=== PATIENT | female | born 1980 | race Caucasian/White ===

== ENCOUNTER 2017-07-29 13:04 | Outpatient (CLI) | payer BC ==
[2017-07-29 13:23] LABS: #Basophils 0.1 thou/uL (0.0-0.2); #Eosinphils 0.1 thou/uL (0.0-0.7); #Lymphocytes 2.5 thou/uL (1.20-3.40); #Monocytes 0.4 thou/uL (0.11-0.59); #Neutrophils 2.6 thou/uL (1.40-6.50); %Basophils 1.2 % (0.0-1.0); %Eosinophils 2.6 % (0.0-10.0); %Lymphocytes 43.3 % (21.0-51.0); %Monocytes 7.1 % (0.0-10.0); %Neutrophils 45.9 % (42.0-75.0); Mean Corpuscular HGB CONC 34.6 g/dL (32.0-36.0); Mean Corpuscular Hemoglobin 32.3 pg (27.0-31.0); Mean Corpuscular Volume 93.4 fl (81.0-99.0); Mean Platelet Volume 7.8 fL (7.4-10.4); Platelet Count 319 thou/uL (130-400); RBC Distribution Width 11.1 % (11.5-14.5); Red Blood Cell (RBC) Count 4.32 mill/uL (4.20-5.40); White Blood Cell (WBC) Count 5.7 thou/uL (4.8-10.8)
[2017-07-29 13:44] LABS: Anion Gap 13 mmol/L (10-20); BUN (Urea Nitrogen) 12 mg/dL (7.0-18.7); Calc. Creatinine Clearance 0 mL/min (70-130); Calcium 9.3 mg/dL (7.8-10.44); Carbon Dioxide 19 mmol/L (22-29); Chloride 108 mmol/L (98-107); Estimated GFR-MDRD 87; Glucose 94 mg/dL (70-105); Potassium 3.7 mmol/L (3.5-5.1); Sodium 136 mmol/L (136-145)
[2017-07-29 13:46] LABS: BHCG - Serum Negative (NEGATIVE); Pregs Control Background? CLEAR/WHITE (CLR/WHITE); Pregs Control Bar Appear? YES (CONTROL BAR)
== END 2017-07-29 13:05 | disposition home or self-care (01) ==
LOC: LABBT 13:04
PROVIDERS: ATTEND Specialist
DX: Z01.818 Encounter for other preprocedural examination (principal); K64.4 Residual hemorrhoidal skin tags; K64.8 Other hemorrhoids
CPT/HCPCS: 80048; 84703; 85025

== ENCOUNTER 2017-07-31 08:27 | Day surgery (SDC) | payer BC ==
--- NOTE | 2017-07-24 06:20 | HP ---
HISTORY OF PRESENT ILLNESS: Ms. Viola Benoit is a 36-year-old female who has experienced years of h emorrhoidal complaints, bleeding, mostly pain and prolapse. She has redundant perianal skin, it has greatly bothersome to her. She has tolerated the itching. More recently, she has experienced bleedi ng, she has never had a colonoscopy. Family history is negative for colon cancer. She is referred b nathaniel Donato. The patient has tried different creams, Preparation H and warm and hot baths without relief. ALLERGIES: None. TOBACCO: None. ALCOHOL: Rarely. MEDICAITONS: Antidepressants, otherwise noncontributory except for [id number] Zyrtec oral cont raceptives. PAST EMDICAL HSITORY: Noncontributory. REVIEW OF SYSTEMS: Noncontributory, 2, para 2. A 10-point review of systems is negative. PHYSICAL EXAMINATION: VITAL SIGNS: A 182 pounds, 61 inches, 114/76, 89, 98 degrees. HEENT: Unremarkable. LUNGS: Clear to auscultation. CARDIAC: Regular rate and rhythm. No murmur or gallop. ABDOMEN: Soft, nontender. EXTREMITIES: Unremarkable. GENITOURINARY: Perianal area reveals a very large redundant hemorrhoidal tag, almost 4 cm. There we re smaller posterior hemorrhoidal tags. Anoscopy reveals stigmata of bleeding from her anterior hemo rrhoids. She has moderate to large internal hemorrhoids. ASSESSMENT AND PLAN: Symptomatic hemorrhoidal disease refractory to medical treatment. I have discu ssed treatment options, surgical and nonsurgical. She wishes to proceed with colonoscopy, PPH, stapl ed hemorrhoidectomy, and excision of remaining external hemorrhoidal tissue. She understands the ris ks, infection, bleeding, reoperation, etc., and consents.
--- NOTE | 2017-07-24 06:21 | ADD-HP ---
ADDENDUM TO HISTORY AND PHYSICAL DICTATED 04/13/2017 - #[id number] HISTORY OF PRESENT ILLNESS: Viola Benoit is a 37-year-old female with persistent hemorrhoidal prola pse, hemorrhoid tags, painful hemorrhoids, and bleeding. Recommendations were for PPH stapled hemorr hoidectomy after a colonoscopy after a bowel prep the day prior. She understands the risks and benef its of procedure and consents. We will plan this in early July. MEDICATIONS: Oral contraceptives, Zyrtec, venlafaxine. PAST MEDICAL HISTORY: Depression, cluster headaches. PAST SURGICAL HISTORY: Left arthroscopies, meniscectomy in 2002, tonsillectomy, , colonosco py by Dr. Ball in September 2008. The patient followed by Dr. Donato. REVIEW OF SYSTEMS: Ten-point noncontributory. PHYSICAL EXAMINATION: VITAL SIGNS: 172 pounds, 61 inches, 32 BMI, 108/59, 73, 99 degrees. HEAD, EYES, EARS, NOSE, AND THROAT: Unremarkable. LUNGS: Clear to auscultation. CARDIAC: Regular rate and rhythm without murmur or gallop. ABDOMEN: Soft, nontender, no masses. EXTREMITIES: Unremarkable. RECTAL: Patient has prolapsed hemorrhoids with a very large hemorrhoidal tag, approximately 5 cm in length. She has tender hemorrhoids. ASSESSMENT: Internal and external hemorrhoids with rectal bleeding. PLAN: Colonoscopy, PPH stapled hemorrhoidectomy. She understands the risks and benefits and consent s.
[2017-07-29 13:20] VITALS: BMI 32.5
[2017-07-31] MEDS ORDERED: Fentanyl 100 MCG/2 ML VIAL ONE ×2 (08:36→11:18)
[2017-07-31] MEDS ORDERED: Bupivacaine PF 0.5% 30 ML VIAL ONE (08:47)
[2017-07-31] MEDS ORDERED: Lidocaine 2% Jelly 5 ML TUBE ONE (08:47)
[2017-07-31] MEDS ORDERED: Lidocaine 2% w/Epinephrine 1:200K 20 ML VIAL ONE (08:49)
[2017-07-31] MEDS ORDERED: Ketorolac Tromethamine 30 MG/ML VIAL ONE (08:58)
[2017-07-31] MEDS ORDERED: Scopolamine 1.5 mg/72 hour Patch ONE (09:13)
[2017-07-31] MEDS ORDERED: Meropenem 1 GM in Sterile Water 20 ML SLOW IVP SCH (09:15)
--- NOTE | 2017-07-31 12:12 | OP ---
DATE OF OPERATION: 07/31/2017 PREOPERATIVE DIAGNOSES: Prolapsing hemorrhoids, rectal bleeding. POSTOPERATIVE DIAGNOSES: Prolapsing hemorrhoids, rectal bleeding. PROCEDURE: Colonoscopy to cecum. No diverticula, no polyps. PPH stapled hemorrhoidectomy. Excisio n of three hemorrhoid complexes, one large prolapsing. SURGEON: Dr. Clarence Hudson ANESTHESIA: General. Local 0.5% Marcaine, 30 mL, mixed with 1% Xylocaine with epinephrine, 30 mL. PROCEDURE: The patient was taken to the operating room where under general anesthesia in the left la teral decubitus position colonoscope passed per anus under direct visualization and using air insuffl ation passed throughout the colon to the cecum. The colon was tortuous, difficult to visualize requi ring positioning supine and pressure abdomen and to achieve visualization of the cecum. Cecum, ascen ding, transverse, descending, sigmoid colon, and rectum were entirely normal except for hemorrhoids. Scope was withdrawn after colon decompressed. The patient was placed in the prone position and prop er padding and technique. Buttocks cheeks were taped apart and anus gently dilated. The patient had a very large hemorrhoidal prolapse approximately 8 cm at the 6 o'clock radian. She had other hemorr hoid complexes, right and left. Obturator placed along with a working port which was secured with fo ur quadrant sutures of 2-0 silk. Suture placement device placed high in the anus and circumferential suture placed 2-0 Prolene, removing the suture placement device and placing the stapler. Stapler pr operly positioned into the rectum and sutures pulled out the side holes and air knot tied and was sec ured against the post. It was approximated and once visualized and noted to be above the dentate mary e the stapler was fired, released, removing the hemorrhoidal complex, inspecting the staple line. Th ere was one area sutured with [id number] suture of 3-0 chromic otherwise it was hemostatic. The working port was removed and prolapsed hemorrhoids observe. This markedly improved the hemorrhoidal prolapse, but there was persistent hemorrhoidal prolapse, most markedly at the 6 o'clock region and also at the 3 and 9. These large hemorrhoidal complexes at 6 o'clock was removed with a suture of 3- 0 chromic placed using the LigaSure and closing the LigaSure suture line with continuous locking sutu re of 3-0 chromic. The area was anesthetized with local anesthetic mixture. Right and left hemorrho idal complex likewise excised with smaller resections required, closing the suture lines with continu ous locked suture of 3-0 chromic and local anesthetic infiltrated. The patient tolerated the procedu re well.
[2017-07-31] MEDS ORDERED: HYDROcodone/Acetaminophen 5/325 mg Tablet ONE (12:16)
[2017-07-31] MEDS ORDERED: Dexamethasone 20 MG/5 ML VIAL ONE (14:18)
[2017-07-31] MEDS ORDERED: Propofol 200 MG/20 ML VIAL ONE (14:18)
[2017-07-31] MEDS ORDERED: Lidocaine 1% PF 5 ML VIAL ONE (14:18)
[2017-07-31] MEDS ORDERED: Ondansetron HCl/PF 4 MG/2 ML Vial ONE (14:18)
[2017-07-31] MEDS ORDERED: Succinylcholine Chloride 20 MG/ML 10 ml SYRINGE FS ONE (14:18)
== END 2017-07-31 13:30 | disposition home or self-care (01) ==
LOC: SDC 08:27
PROVIDERS: ATTEND Specialist
PROC: 06BY0ZC Excision of Hemorrhoidal Plexus, Open Approach (ICD-10-PCS; principal; 2017-07-31)
PROC: 0DJD8ZZ Inspection of Lower Intestinal Tract, Via Natural or Artificial Opening Endoscopic (ICD-10-PCS; principal; 2017-07-31)
DX: K64.8 Other hemorrhoids (principal); K64.4 Residual hemorrhoidal skin tags; F32.9 Major depressive disorder, single episode, unspecified; Z79.899 Other long term (current) drug therapy; Z98.890 Other specified postprocedural states
CPT/HCPCS: 96374; A4216; J0131; J1100; J1885; J2001; J2185; J2405; J2704; J3010; S0020

== ENCOUNTER 2018-06-03 10:55 | Outpatient (CLI) | payer BC | END 2018-06-03 10:56 | disposition home or self-care (01) | LOC: BICMAMMO 10:55 | PROVIDERS: ATTEND Obstetrics & Gynecology | DX: Z12.31 Encounter for screening mammogram for malignant neoplasm of breast (principal); Z80.3 Family history of malignant neoplasm of breast | CPT/HCPCS: 77063; 77067 ==

== ENCOUNTER 2019-02-16 15:34 | Emergency (ER) | payer BC ==
--- NOTE | 2019-02-16 16:02 | RAD ---
RADIOGRAPH CHEST 1 VIEW: DATE: 02/16/2019 HISTORY: 38-year-old female with chest pain FINDINGS: The visualized lung monge are clear. The cardiomediastinal silhouette and hilar shadows are normal. The lateral costophrenic angles are sharp. The osseous structures appear normal. There is no pneumothorax. IMPRESSION: Negative.
[2019-02-16 16:06] LABS: #Basophils 0.1 thou/uL (0.0-0.2); #Eosinphils 0.1 thou/uL (0.0-0.7); #Lymphocytes 2.4 thou/uL (1.20-3.40); #Monocytes 0.4 thou/uL (0.11-0.59); #Neutrophils 2.7 thou/uL (1.40-6.50); %Basophils 1.3 % (0.0-1.0); %Eosinophils 1.9 % (0.0-10.0); %Lymphocytes 42.8 % (21.0-51.0); %Monocytes 7.1 % (0.0-10.0); %Neutrophils 46.9 % (42.0-75.0); Hemoglobin 14.5 g/dL (12.0-16.0); Mean Corpuscular HGB CONC 35.2 g/dL (32.0-36.0); Mean Corpuscular Hemoglobin 32.2 pg (27.0-31.0); Mean Corpuscular Volume 91.6 fL (78.0-98.0); Mean Platelet Volume 7.6 fL (7.4-10.4); Platelet Count 313 thou/uL (130-400); RBC Distribution Width 11.1 % (11.5-14.5); Red Blood Cell (RBC) Count 4.49 mill/uL (4.20-5.40); White Blood Cell (WBC) Count 5.6 thou/uL (4.8-10.8)
[2019-02-16] MEDS ORDERED: Lidocaine Viscous Sol 2% 15 ml UD Cup ONE (16:14)
[2019-02-16] MEDS ORDERED: Mag-Al 1200 mg/1200 mg/30 ML UDCUP ONE (16:14)
[2019-02-16 16:30] LABS: ALT (SGPT) 16 U/L (8-55); AST (SGOT) 13 U/L (5-34); Albumin 4.4 g/dL (3.5-5.0); Alkaline Phosphatase 56 U/L (40-150); Anion Gap 16 mmol/L (10-20); BUN (Urea Nitrogen) 11 mg/dL (7.0-18.7); Bilirubin, Total 0.5 mg/dL (0.2-1.2); CK (CPK) 33 U/L (29-168); Calc. Creatinine Clearance 0 mL/min (70-130); Calcium 9.6 mg/dL (7.8-10.44); Carbon Dioxide 21 mmol/L (22-29); Chloride 108 mmol/L (98-107); Estimated GFR-MDRD 79; Globulin 2.8 g/dL (2.4-3.5); Glucose 98 mg/dL (70-105); Potassium 3.8 mmol/L (3.5-5.1); Protein, Total 7.2 g/dL (6.0-8.3); Sodium 141 mmol/L (136-145)
--- NOTE | 2019-02-16 17:16 | ULT ---
RIGHT UPPER QUADRANT ULTRASOUND CLINICAL HISTORY: Right upper quadrant pain with concern for acute cholecystitis. COMPARISON: CT abdomen and pelvis without contrast dated January 12, 2012 FINDINGS: Liver:Normal echotexture without focal mass. Bile ducts: No intrahepatic or extrahepatic biliary dilation.; common bile duct: 0.49cm Gallbladder: Normal appearing. Cardozo's sign:None Main portal vein:Patent Pancreas: Visualized pancreas appears normal. Right kidney: There is a 9 mm cyst involving the right mid kidney. Right kidney measuring 10.6 x 3.7 x 5.0 cm in length. Additional findings: None. IMPRESSION: No acute abnormality. Small right renal cyst.
--- NOTE | 2019-02-19 11:06 | EKG ---
Test Reason : Blood Pressure : / mmHG Vent. Rate : 085 BPM Atrial Rate : 085 BPM P-R Int : 126 ms QRS Dur : 084 ms QT Int : 362 ms P-R-T Axes : 031 023 006 degrees QTc Int : 430 ms Normal sinus rhythm Normal ECG Confirmed by DHRUV GRANDE ([id number]), news copy editor ROSMERY HUERTA ([id number]) on 02/19/2019 11:05:49 AM Referred By: Confirmed By:DHRUV GRANDE
== END 2019-02-16 19:04 | disposition home or self-care (01) ==
LOC: ERS 15:34
DX: R07.89 Other chest pain (principal)
CPT/HCPCS: 36415; 71045; 76705; 80053; 82550; 83690; 84484; 85025; 85379; 93005

== ENCOUNTER 2019-03-14 12:36 | Outpatient (CLI) | payer BC ==
--- NOTE | 2019-03-14 15:57 | NM ---
HEPATOBILIARY SCAN: HISTORY:Epigastric pain. No gallstones and ultrasound of 02/16/2019 RADIOPHARMACEUTICAL: 5 mCi Technetium 99m Mebrofenin injected intravenously FINDINGS: There is normal tracer extraction by the liver with normal excretion into the biliary tracts and smal l bowel loops and normal filling of the gallbladder. The calculated gallbladder ejection fraction following an oral fatty meal measures 58%. IMPRESSION:Normal exam.
== END 2019-03-14 12:37 | disposition home or self-care (01) ==
LOC: NM 12:36
PROVIDERS: ATTEND Family Medicine
DX: R10.13 Epigastric pain (principal)
CPT/HCPCS: 78227; A9537

== ENCOUNTER 2019-07-06 11:24 | Outpatient (CLI) | payer BC ==
--- NOTE | 2019-07-06 12:34 | MMO ---
Bilateral MAMMO Bilat Screen [facility]. CLINICAL HISTORY: Patient is 39 years old and is seen for screening. The patient has no family history of breast cancer. The patient has no personal history of cancer. VIEWS: The views performed were: bilateral craniocaudal with tomosynthesis and bilateral mediolateral oblique with tomosynthesis. FILMS COMPARED: The present examination has been compared to a prior imaging study performed at [facility] on 06/03/2018. This study has been interpreted with the assistance of computer-aided detection. MAMMOGRAM FINDINGS: There are scattered fibroglandular densities. There are no suspicious masses, suspicious calcifications, or new areas of architectural distortion. IMPRESSION: THERE IS NO MAMMOGRAPHIC EVIDENCE OF MALIGNANCY. A ROUTINE FOLLOW-UP MAMMOGRAM IN 1 YEAR IS RECOMMENDED. THE RESULTS OF THIS EXAM WERE SENT TO THE PATIENT. ACR BI-RADS Category 1 - Negative MAMMOGRAPHY NOTE: 1. A negative mammogram report should not delay a biopsy if a dominant of clinically suspicious mass is present. 2. Approximately 10% to 15% of breast cancers are not detected by mammography. 3. Adenosis and dense breasts may obscure an underlying neoplasm. Reported by: PROSPER DANIELS MD Electonically Signed: [id number]
== END 2019-07-06 11:25 | disposition home or self-care (01) ==
LOC: BICMAMMO 11:24
PROVIDERS: ATTEND Obstetrics & Gynecology
DX: Z12.31 Encounter for screening mammogram for malignant neoplasm of breast (principal)
CPT/HCPCS: 77063; 77067

== ENCOUNTER 2020-09-19 12:15 | Outpatient (CLI) | payer BC | END 2020-09-19 12:16 | disposition home or self-care (01) | LOC: BICMAMMO 12:15 | PROVIDERS: ATTEND Obstetrics & Gynecology | DX: Z12.31 Encounter for screening mammogram for malignant neoplasm of breast (principal); Z80.3 Family history of malignant neoplasm of breast | CPT/HCPCS: 77063; 77067 ==